=== PATIENT | female | born 2000 | race Caucasian/White ===

== ENCOUNTER 2023-06-16 08:41 | Emergency (ER) | payer OTHER ==
[~2023-06-16] VITALS: Ht 177.8 cm; Wt 64.9 kg
[2023-06-16] MEDS ORDERED: CEFADROXIL500 MG PO (10:16)
== END 2023-06-16 10:29 | disposition home or self-care (01) ==
LOC: ER 08:42
DX: L03.012 Cellulitis of left finger (principal)

== ENCOUNTER 2024-09-12 22:55 | Emergency (ER) | payer OTHER ==
[~2024-09-12] VITALS: Ht 180.3 cm; Wt 61.2 kg
[~2024-09-12 22:55] MED LIST: CEFADROXIL500 MG PO
[2024-09-13] MEDS ORDERED: FAMOTIDINE/PF 20 MG in 0.9 % SODIUM CHLORIDE 8 ML IV PUSH STA (00:18)
[2024-09-13] MEDS ORDERED: DIPHENOXYLATE HCL/ATROPINE 1 UDTAB TABLET PO ONE (00:30)
[2024-09-13] MEDS ORDERED: ONDANSETRON HCL 2 MG/ML VIAL IV ONE (00:30)
[2024-09-13] MEDS ORDERED: 0.9 % SODIUM CHLORIDE 1,000 ML IV SCH (00:30)
[2024-09-13 01:12] LABS: HEMATOCRIT 45.7 % (36.0-45.00); MEAN CELL VOLUME 85.3 fL (80.00-100.00); MEAN CORPUSCULAR HEMOGLOBIN 29.8 pg (27.00-32.0); MEAN CORPUSCULAR HGB CONC 34.9 g/dl (32.0-36.0); PLATELET COUNT 307 K/uL (150-450); RED BLOOD COUNT 5.36 M/uL (4.00-6.00); RED CELL DISTRIBUTION WIDTH 13.6 % (11.5-14.5)
[2024-09-13 01:45] LABS: ALBUMIN 4.9 gm/dL (3.4-5.0); BILIRUBIN TOTAL 0.65 mg/dL (0.3-1.2); CALCIUM 9.5 mg/dL (8.5-10.1); CREATININE SERUM 0.89 mg/dL (0.55-1.02); GFR 78.6; POTASSIUM 3.89 mEq/L (3.5-5.1); TOTAL PROTEIN 8.9 gm/dL (6.4-8.2)
[2024-09-13] MEDS ORDERED: ONDANSETRON ODT8 MG PO (02:12)
[2024-09-13] MEDS ORDERED: PEPCID AC20 MG PO (02:12)
== END 2024-09-13 02:21 | disposition home or self-care (01) ==
LOC: ER 22:55
PROVIDERS: General Practice
DX: K52.9 Noninfective gastroenteritis and colitis, unspecified (principal); R11.2 Nausea with vomiting, unspecified; R11.10 Vomiting, unspecified; Z20.822 Contact with and (suspected) exposure to COVID-19

== ENCOUNTER 2025-05-21 14:17 | Emergency (ER) | payer OTHER ==
[~2025-05-21] VITALS: Ht 177.8 cm; Wt 68.0 kg
[~2025-05-21 14:17] MED LIST changes: +ONDANSETRON ODT8 MG PO; +PEPCID AC20 MG PO
[2025-05-21 17:11] LABS: BASO % 0.8 % (0.1-1.2); EOS # 0.03 (0.04-0.54); EOS % 0.3 % (0.7-7.0); LYMPH # 1.75 (1.18-3.74); LYMPH % 16.9 % (19.3-53.1); MEAN PLATELET VOLUME 9.10 fl (9.4-12.4); MONO # 0.49 (0.24-0.82); MONO % 4.7 % (4.7-12.5); NEUT # 8.00 (1.56-6.13); NEUT % 77.0 % (34.0-71.1); RED CELL DISTRIBUTION WIDTH 13.0 % (11.6-14.4)
== END 2025-05-21 20:02 | disposition home or self-care (01) ==
LOC: ER 14:18
PROVIDERS: General Practice
DX: F41.9 Anxiety disorder, unspecified (principal); R42 Dizziness and giddiness; G30.9 Alzheimer's disease, unspecified